=== PATIENT | female | born 1950 | race African-American/Black ===

== ENCOUNTER → 2019-06-10 | Outpatient (CLI) | payer OTHER ==
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
== END ==
LOC: RAD 10:53
PROVIDERS: ATTEND Surgery
DX: S20.219A Contusion of unspecified front wall of thorax, initial encounter (principal); S13.4XXA Sprain of ligaments of cervical spine, initial encounter; V54 Occupant of pick-up truck or van injured in collision with heavy transport vehicle or bus; E04.9 Nontoxic goiter, unspecified
CPT/HCPCS: 71046; 71101